=== PATIENT | male | born 2000 | race Caucasian/White ===

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

== ENCOUNTER → 2020-06-30 | Outpatient (CLI) | payer BC ==
[~2020-06-30] MED LIST changes: +NORCO 10-325 T1 EACH PO; +Percocet 325 MG1 TAB PO
== END | disposition home or self-care (01) ==
LOC: RAD 15:28
PROVIDERS: ATTEND Nurse Practitioner Family
DX: R06.02 Shortness of breath (principal)

== ENCOUNTER 2022-03-26 02:32 | Emergency (ER) | payer BC ==
[~2022-03-26] VITALS: Ht 185.4 cm; Wt 74.8 kg
[2022-03-26 03:56] LABS: URINE AMPHETAMINES > 1000 (1000ng/ml); URINE BENZODIAZEPINES < 200 (200ng/ml); URINE CANNABINOIDS (THC) > 50 (50ng/ml); URINE COCAINE < 300 (300ng/ml); URINE METHADONE < 300 (300ng/ml); URINE OPIATES < 300 (300ng/ml)
[2022-03-26 04:03] LABS: URINE BARBITURATES < 200 (200ng/ml)
[2022-03-26 04:04] LABS: URINE PHENCYCLIDINE < 25 (25ng/ml)
== END 2022-03-26 04:25 | disposition home or self-care (01) ==
LOC: ED 02:32
PROVIDERS: Internal Medicine
DX: F15.90 Other stimulant use, unspecified, uncomplicated (principal); Z88.8 Allergy status to other drugs, medicaments and biological substances

== ENCOUNTER → 2022-04-05 | Outpatient (CLI) | payer BC ==
[2022-04-05 14:33] LABS: HEMATOCRIT 43.5 % (42.0-52.0); MEAN CELL VOLUME 86.7 fl (80.0-94.0); MEAN CORPUSCULAR HGB 30.7 pg (27.0-31.0); MEAN CORPUSCULAR HGB CONC 35.4 g/dl (33.0-37.0); MEAN PLATELET VOLUME 9.4 fl (9.6-12.3); RED BLOOD COUNT 5.02 10*6/uL (4.50-5.90); WHITE BLOOD COUNT 4.8 10*3/uL (4.8-10.8)
[2022-04-05 14:55] LABS: ALKALINE PHOSPHATASE 56 U/L (46-116); BUN 10 mg/dl (9-23); CHLORIDE 104 mmol/L (98-107); CREATININE 0.93 mg/dL (0.70-1.30); SGPT/ALT 16 U/L (10-49); SODIUM 136 mmol/L (136-145); TRIGLYCERIDES 53 mg/dl (<150)
[2022-04-05 14:56] LABS: CHOLESTEROL 145 mg/dL (<200); LDL CHOLESTEROL 78 mg/dL (9-159); TOTAL PROTEIN 7.5 gm/dL (6.0-8.0)
[2022-04-05 14:58] LABS: FREE T4 1.23 ng/dl (0.89-1.76)
[2022-04-05 15:53] LABS: VITAMIN D, 25-HYDROXY 37.1 ng/mL (30-100)
== END | disposition home or self-care (01) ==
LOC: LAB 14:02
PROVIDERS: ATTEND Family Medicine
DX: Z00.00 Encounter for general adult medical examination without abnormal findings (principal); Z13.220 Encounter for screening for lipoid disorders; K59.00 Constipation, unspecified; K21.9 Gastro-esophageal reflux disease without esophagitis; E55.9 Vitamin D deficiency, unspecified

== ENCOUNTER → 2025-03-09 | Outpatient (CLI) | payer BC ==
[2025-03-09 14:27] LABS: MEAN CELL VOLUME 87.2 fl (80.0-94.0); MEAN CORPUSCULAR HGB 30.5 pg (27.0-31.0); MEAN PLATELET VOLUME 10.0 fl (9.6-12.3); NUCLEATED RED BLOOD CELL 0.0 % (0.0-0.0); NUCLEATED RED BLOOD CELL 0.0 10*3/uL (0.0-0.0); PLATELET COUNT AUTOMATED 223.0 10*3/uL (130-400); RED CELL DISTRI WIDTH 12.9 % (0-14.5)
[2025-03-09 14:50] LABS: BUN 11 mg/dl (9-23); LDL CHOLESTEROL 73 mg/dL (9-159); SGPT/ALT 14 U/L (5-49)
== END | disposition home or self-care (01) ==
LOC: LAB 14:12
PROVIDERS: ATTEND Family Medicine
DX: L03.116 Cellulitis of left lower limb (principal); A69.20 Lyme disease, unspecified